=== PATIENT | female | born 1970 | race Caucasian/White ===

== ENCOUNTER 2024-05-24 11:24 | Emergency (ER) | payer BC ==
[~2024-05-24] VITALS: Ht 165.1 cm; Wt 93.2 kg
[2024-05-24 11:41] VITALS: TEMP 98.2
[2024-05-24] MEDS ORDERED: Ketorolac 30 MG/ML VIAL IV ONE (12:30)
[2024-05-24] MEDS ORDERED: NS 1,000 ML IV ONE (12:30)
[2024-05-24 12:41] LABS: BASO # 0.1 K/mm3 (0.0-0.2); BASO % 0.3 % (0.0-2.0); EOS % 0.2 % (0.0-4.0); GRAN # 16.6 K/mm3 (1.4-6.5); GRAN % 87.8 % (42.2-75.2); HEMATOCRIT 45.2 % (37.0-47.0); HEMOGLOBIN 14.9 g/dl (12.5-16.0); LYMPH # 0.9 K/mm3 (1.2-3.4); MEAN CELL VOLUME 85 fl (80.0-100.0); MEAN CORPUSCULAR HEMOGLOBIN 28 pg (27-31); MEAN CORPUSCULAR HGB CONC 33 g/dl (33.0-37.0); MEAN PLATELET VOLUME 10.2 fl (7.4-10.4); MONO # 1.2 K/mm3 (0.1-0.6); MONO % 6.1 % (1.7-9.3); PLATELET COUNT 235 K/mm3 (130-400); RED BLOOD COUNT 5.34 M/mm3 (4.10-5.30); REDCELL DISTRIBUTION WIDTH-CV 13.9 % (11.5-14.5)
[2024-05-24 12:58] LABS: ALBUMIN 3.9 g/dL (3.5-5.0); BILIRUBIN,TOTAL 0.7 mg/dL (0.2-1.2); C-REACTIVE PROTEIN 8.49 mg/dL (0.00-0.50); CALCIUM 9.1 mg/dL (8.4-10.2); CREATININE, serum 0.79 mg/dL (0.57-1.11); POTASSIUM 3.7 mEq/L (3.5-4.5); TOTAL PROTEIN 7.4 g/dl (6.2-8.1)
[2024-05-24 13:27] LABS: COLLECTION METHOD CLEAN CATCH
[2024-05-24 13:37] LABS: URINE APPEARANCE CLEAR (CLEAR/HAZY); URINE BLOOD NEGATIVE (NEGATIVE); URINE COLOR YELLOW (YELLOW); URINE GLUCOSE NEGATIVE (NEGATIVE); URINE KETONE 4+ (NEGATIVE); URINE NITRATE NEGATIVE (NEGATIVE); URINE PROTEIN(semi-quant) 1+ (NEGATIVE); URINE UROBILINOGEN 0.2 E.U/dL (0.2-1.0)
[2024-05-24] MEDS ORDERED: Iohexol 300 - 100 ML VIAL IV ONE (17:55)
[2024-05-24] MEDS ORDERED: NS 100 ML IV ONE (17:55)
[2024-05-24] MEDS ORDERED: NORCO 325 MG-51 TAB PO (19:23)
[2024-05-24] MEDS ORDERED: FLAGYL500 MG PO (19:23)
[2024-05-24] MEDS ORDERED: COLACE 100100 MG/CAP PO (19:23)
[2024-05-24] MEDS ORDERED: AMOXICILLIN 8751 TAB PO (19:23)
[2024-05-24 19:35] VITALS: BP 130/72; PULSE 96
== END 2024-05-24 19:35 | disposition home or self-care (01) ==
LOC: COL.ER 11:24
PROVIDERS: Emergency Medicine
DX: K57.32 Diverticulitis of large intestine without perforation or abscess without bleeding (principal)
CPT/HCPCS: J1885; J7030; Q9967